=== PATIENT | female | born 1995 | race Caucasian/White ===

== ENCOUNTER → 2019-02-12 09:56 | Outpatient (BNVA) | payer OTHER, SELFPAY | PROVIDERS: Family Provider Family Medicine; PCP Family Medicine; Referring Provider Obstetrics & Gynecology; Visit Provider Obstetrics & Gynecology | DX: Z31.69 Encounter for other general counseling and advice on procreation (principal); Z31.9 Encounter for procreative management, unspecified | CPT/HCPCS: 36415; 83036; 84144; 84443 ==

== ENCOUNTER → 2020-01-04 08:58 | Outpatient (BNVA) | payer OTHER, SELFPAY | PROVIDERS: Family Provider Family Medicine; PCP Family Medicine; Visit Provider Obstetrics & Gynecology | DX: N83.02 Follicular cyst of left ovary (principal); N83.01 Follicular cyst of right ovary | CPT/HCPCS: 76830 ==

== ENCOUNTER → 2020-01-19 15:50 | Outpatient (BNVA) | payer OTHER, SELFPAY | PROVIDERS: Family Provider Family Medicine; PCP Family Medicine; Visit Provider Obstetrics & Gynecology | DX: N97.8 Female infertility of other origin (principal) | CPT/HCPCS: 81025 ==

== ENCOUNTER → 2020-03-02 14:27 | Outpatient (BNVA) | payer OTHER, SELFPAY | PROVIDERS: Family Provider Family Medicine; PCP Family Medicine; Visit Provider Obstetrics & Gynecology | DX: N85.4 Malposition of uterus (principal) | CPT/HCPCS: 76830 ==

== ENCOUNTER → 2020-03-03 10:07 | Outpatient (BNVA) | payer OTHER, SELFPAY | PROVIDERS: Family Provider Family Medicine; PCP Family Medicine; Visit Provider Obstetrics & Gynecology | DX: N85.4 Malposition of uterus (principal); N83.8 Other noninflammatory disorders of ovary, fallopian tube and broad ligament | CPT/HCPCS: 76830 ==

== ENCOUNTER 2020-06-25 17:09 | Emergency (ER) | payer OTHER, SELFPAY ==
[2020-06-25 17:23] VITALS: BP 125/86; PULSE 106; RESP 18; TEMP 36.8; O2SAT 98; BMI 22.6
[2020-06-25 17:27] VITALS: BP 116/77; PULSE 98; RESP 20; O2SAT 100
[2020-06-25 18:07] VITALS: BP 124/79; PULSE 108; RESP 18; O2SAT 99
[2020-06-25 18:22] LABS: Basophils % 0.4 %; Eosinophils % 0.5 %; Hematocrit 46.9 % (37.0-47.0); Hemoglobin 16.1 g/dL (11.5-15.3); Lymphocytes # 0.4 10^3/uL (0.8-4.8); Lymphocytes % 5.2 %; Mean Corpuscular HGB Conc 34.3 g/dL (30.0-36.0); Mean Corpuscular Volume 90.2 fL (81-99); Mean Platelet Volume 9.2 fL (7.4-10.4); Monocytes # 0.4 10^3/uL (0.2-0.9); Monocytes % 5.8 %; Nucleated Red Blood Cells % 0 %; Platelet Count 285 10^3/cmm (130-400); Red Cell Distribution Width 12.2 % (12.1-15.1); White Blood Count 7.6 10^3/uL (4.0-10.0)
--- NOTE | 2020-06-25 18:23 | ED_ITS ---
HPI - Abdominal Pain General: Chief Complaint: Abdominal Pain Stated Complaint: ABD PAIN Time Seen by Provider: 06/25/20 17:28 Source: patient Mode of arrival: ambulatory Limitations: no limitations History of Present Illness: HPI narrative: Patient is a 24-year-old female with a past medical history of endometriosis who presents to the emergency department with abdominal pain that started last night. Pain has been gradually getting worse and early this morning she started having diarrhea all episodes. She has had about 10 diarrheal episodes so far. The pain has been getting worse since she came to the emergency department to be evaluated. She denies any fever, she does have some nausea but no vomiting. Appetite is decreased. She does not have a history of pancreatitis, does not drink alcohol. She does not use NSAIDs or drink caffeinated products. MD elicited complaint: abdominal pain Pertinent past history: other (endometriosis) Onset (ago): day(s) (1) Pain Consistency: constant Location: Diffuse Severity: severe Quality: cramping Radiation: none Migration to: no migration Exacerbating factors: nothing Relieving factors: nothing Associated Symptoms: Reports anorexia, diarrhea and nausea; Denies belching, bloating, change in bowel habits, change in stool character, chills, coffee ground emesis, constipation, GI cramping, dyspepsia, dysuria, excessive flatus, fever(s), heartburn, hematochezia, hematuria, hematemesis, fecal incontinence, loose stools, melena, poor appetite, syncope and vomiting Review of Systems General: Reports: 10 or more systems reviewed and unremarkable except in HPI and below Const: Denies: fever(s) or chills Card: Denies: syncope GI: Reports: nausea and diarrhea; Denies: vomiting, hematemesis, coffee ground emesis, heartburn, constipation, bloating, GI cramping, belching, excessive flatus, fecal incontinence, change in bowel habits, change in stool character, hematochezia or melena : Denies: dysuria or hematuria [facility] ED PFSH: Medical History (Updated 06/25/20 @ 20:44 by [place] S[place] [facility] [place] Anxiety Has been dealing with anxiety for a number of years however was started on medication in January 2018. Was on on BuSpar and diazepam managed by her primary care provider Dr. Adkins -Is currently on fluoxetine and has stopped BuSpar and diazepam as she is trying to get . She currently follows up with a therapist Dr. Phu Guerrero in [place]. No pertinent past medical history Patient denies history of PE/DVT/clotting disorders, asthma, lung, liver heart, thyroid, kidney disease, hypertension or diabetes. PCP: Dr. Adkins Surgical History (Reviewed 06/25/20 @ 18:26 by Rebecca Sellers [place] [facility] [place] S/P appendectomy Open appendectomy via right lower quadrant incision at the age of 12 Family History (Reviewed 06/25/20 @ 18:26 by Rebecca Sellers [place], [facility] [place] Grandfather Hypertension Paternal Brother Hypertension Family/Other Hypertension Paternal Uncle Father Heart disease Grandmother Uterine cancer Paternal, diagnosed at age 65 Denies family history of Cervical cancer Colon cancer DVT (deep venous thrombosis) Breast cancer Pulmonary embolism Social History (Reviewed 06/25/20 @ 18:26 by Rebecca Sellers [place], [facility] [place] Additional social history: - Drug Use: Denies Alcohol Use: Drinks a glass of wine once monthly on average Tobacco Use: Denies current or past use Work/Study Status: 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 [employer] Physical Exam Const: COMMON NORMALS: no acute distress, average body habitus, patient oriented x3, no limitations, healthy appearing, alert and well nourished HENMT: COMMON NORMALS: normocephalic, atraumatic and moist oral mucous membranes HEAD & SCALP: normocephalic and atraumatic Neck/C-Spine: COMMON NORMALS: no meningeal signs and no JVD Resp: COMMON NORMALS: normal respiratory effort, No retractions, No use of accessory muscles, clear to auscultation bilaterally and percussion normal AUSCULTATION: clear to auscultation bilaterally PERCUSSION: percussion normal Cardio: COMMON NORMALS: no JVD, regular rate, regular rhythm, S1 normal heart sound present, S2 normal heart sound present, No gallops present (Cardio), No clicks present (Cardio), No murmurs present (Cardio), No rub (Cardio) and Peripheral pulses 2+ throughout RATE: regular rate RHYTHM: regular rhythm HEART SOUNDS: S1 normal heart sound present and S2 normal heart sound present PERIPHERAL PULSES: Peripheral pulses 2+ throughout GI: COMMON NORMALS: Normal to inspection, nondistended, normoactive bowel sounds present, Soft to palpation, No hepatosplenomegaly present, no masses and no bruits PALPATION: Yes Soft to palpation, Yes Tenderness to palpation present (GI) (mild tenderness RUQ, epigastric region) and Yes No hepatosplenomegaly present Extremity: COMMON NORMALS: normal to inspection, full ROM, capillary refill normal, no calf tenderness and no pedal edema Neuro: COMMON NORMALS: patient oriented x3 SENSORIUM/ORIENTATION: Yes alert MENINGEAL SIGNS: Yes no meningeal signs Course Reevaluation(s): Reevaluation #1: Discussed her lab and imaging findings with her. Lab work unremarkable for acute findings, UA suggestive of UTI although the sample is not a great sample. CT scan of her abdomen and pelvis consistent with enteritis that is nonspecific. We will give her a short course of antibiotics for the possible UTI and she will be managed conservatively for the enteritis. She voiced understanding and is in agreement with the plan Time: 20:42 Vital Signs: Vital signs: Vital Signs Temperature 97 F L 06/25/20 21:14 Pulse Rate 76 06/25/20 21:14 Respiratory Rate 17 06/25/20 21:14 Blood Pressure 120/62 06/25/20 21:14 Pulse Oximetry 99 06/25/20 21:14 MDM - Abdominal Pain MDM Narrative: Medical decision making narrative: 24-year-old female patient who presents with abdominal pain and diarrhea. Evaluation in the emergency department shows possible UTI as well as enteritis. She will be managed for both, conservatively for enteritis and prescription for antibiotic for the UTI. Lab Data: Labs: Lab Results 06/25/20 06/25/20 06/25/20 Range/Units 18:16 18:16 18:16 WBC 7.6 (4.0-10.0) 10^3/ uL RBC 5.20 (4.1-5.3) 10^6/u L Hgb 16.1 H (11.5-15.3) g/dL Hct 46.9 (37.0-47.0) % MCV 90.2 (81-99) fL MCH 31.0 (28.0-34.0) pg MCHC 34.3 (30.0-36.0) g/dL RDW 12.2 (12.1-15.1) % Plt Count 285 (130-400) 10^3/c mm MPV 9.2 (7.4-10.4) fL Neut % (Auto) 88.0 % Lymph % (Auto) 5.2 % Gallia % (Auto) 5.8 % Eos % (Auto) 0.5 % Baso % (Auto) 0.4 % Neut # (Auto) 6.70 (1.8-7.7) 10^3/u L Lymph # (Auto) 0.4 L (0.8-4.8) 10^3/u L Gallia # (Auto) 0.4 (0.2-0.9) 10^3/u L Eos # (Auto) 0.0 (0.0-0.8) 10^3/u L Baso # (Auto) 0.0 (0.0-0.1) 10^3/u L Nucleated RBC % (a uto) 0 % Nucleated RBCs # 0.0 /100WBC Sodium Cancelled Potassium Cancelled Chloride Cancelled Carbon Dioxide Cancelled Anion Gap Cancelled BUN Cancelled Creatinine Cancelled GFR Calculation Cancelled Glucose Cancelled Calculated Osmolal ity Cancelled Lactate Cancelled Calcium Cancelled Total Bilirubin Cancelled AST Cancelled ALT Cancelled Alkaline Phosphata se Cancelled C-Reactive Protein Cancelled Total Protein Cancelled Albumin Cancelled Globulin Cancelled Lipase Cancelled HCG, Qual (Negative) Urine Color (Yellow) Urine Appearance (CLEAR) Urine pH (5-7) Ur Specific Gravit y (1.005-1.030) Urine Protein (Negative) Urine Glucose (UA) (Normal) Urine Ketones (Negative) Urine Blood (Negative) Urine Nitrate (Negative) Urine Bilirubin (Negative) Urine Urobilinogen (Negative) mg/dL Ur Leukocyte Mary ase (Negative) Urine RBC (0-2) /hpf Urine WBC (0-5) /hpf Ur Squamous Epith Cells (0-5) /hpf Amorphous Sediment /hpf Urine Bacteria (NONE) /hpf Urine Mucus /hpf 06/25/20 06/25/20 06/25/20 Range/Units 18:16 18:16 18:43 WBC (4.0-10.0) 10^3/ uL RBC (4.1-5.3) 10^6/u L Hgb (11.5-15.3) g/dL Hct (37.0-47.0) % MCV (81-99) fL MCH (28.0-34.0) pg MCHC (30.0-36.0) g/dL RDW (12.1-15.1) % Plt Count (130-400) 10^3/c mm MPV (7.4-10.4) fL Neut % (Auto) % Lymph % (Auto) % Gallia % (Auto) % Eos % (Auto) % Baso % (Auto) % Neut # (Auto) (1.8-7.7) 10^3/u L Lymph # (Auto) (0.8-4.8) 10^3/u L Gallia # (Auto) (0.2-0.9) 10^3/u L Eos # (Auto) (0.0-0.8) 10^3/u L Baso # (Auto) (0.0-0.1) 10^3/u L Nucleated RBC % (a uto) % Nucleated RBCs # /100WBC Sodium 137 Potassium 3.9 Chloride 102 Carbon Dioxide 24 Anion Gap 14.9 BUN 17 Creatinine 0.9 GFR Calculation 76.3 L Glucose 99 Calculated Osmolal ity 286 Lactate Calcium 8.9 Total Bilirubin 0.9 AST 17 ALT 18 Alkaline Phosphata se 52 C-Reactive Protein 7.8 H Total Protein 7.7 Albumin 4.5 Globulin 3.2 Lipase 29 HCG, Qual Negative (Negative) Urine Color Yellow (Yellow) Urine Appearance Sl hazy (CLEAR) Urine pH 5 (5-7) Ur Specific Gravit y 1.025 (1.005-1.030) Urine Protein Neg (Negative) Urine Glucose (UA) Norm (Normal) Urine Ketones Negative (Negative) Urine Blood 3+ H (Negative) Urine Nitrate Negative (Negative) Urine Bilirubin 1+ H (Negative) Urine Urobilinogen Norm (Negative) mg/dL Ur Leukocyte Mary ase 1+ H (Negative) Urine RBC 10-15 H (0-2) /hpf Urine WBC 5-10 H (0-5) /hpf Ur Squamous Epith Cells 25-40 H (0-5) /hpf Amorphous Sediment 1+ /hpf Urine Bacteria 4+ H (NONE) /hpf Urine Mucus 3+ /hpf 05/15/21 Range/Units 18:43 WBC (4.0-10.0) 10^3/ uL RBC (4.1-5.3) 10^6/u L Hgb (11.5-15.3) g/dL Hct (37.0-47.0) % MCV (81-99) fL MCH (28.0-34.0) pg MCHC (30.0-36.0) g/dL RDW (12.1-15.1) % Plt Count (130-400) 10^3/c mm MPV (7.4-10.4) fL Neut % (Auto) % Lymph % (Auto) % Gallia % (Auto) % Eos % (Auto) % Baso % (Auto) % Neut # (Auto) (1.8-7.7) 10^3/u L Lymph # (Auto) (0.8-4.8) 10^3/u L Gallia # (Auto) (0.2-0.9) 10^3/u L Eos # (Auto) (0.0-0.8) 10^3/u L Baso # (Auto) (0.0-0.1) 10^3/u L Nucleated RBC % (a uto) % Nucleated RBCs # /100WBC Sodium Potassium Chloride Carbon Dioxide Anion Gap BUN Creatinine GFR Calculation Glucose Calculated Osmolal ity Lactate 1.0 Calcium Total Bilirubin AST ALT Alkaline Phosphata se C-Reactive Protein Total Protein Albumin Globulin Lipase HCG, Qual (Negative) Urine Color (Yellow) Urine Appearance (CLEAR) Urine pH (5-7) Ur Specific Gravit y (1.005-1.030) Urine Protein (Negative) Urine Glucose (UA) (Normal) Urine Ketones (Negative) Urine Blood (Negative) Urine Nitrate (Negative) Urine Bilirubin (Negative) Urine Urobilinogen (Negative) mg/dL Ur Leukocyte Mary ase (Negative) Urine RBC (0-2) /hpf Urine WBC (0-5) /hpf Ur Squamous Epith Cells (0-5) /hpf Amorphous Sediment /hpf Urine Bacteria (NONE) /hpf Urine Mucus /hpf Imaging Data ^: CT Abd/Pel: Attestation: I personally reviewed and interpreted this imaging study as follows: Radiologist's impression: [address] [id number] Scan ReportSigned Patient: Cathi Houser AUnit #: [id number]: [id number]#:[id number]/Sex: 24 / FADM Date: 06/25/20Loc: ERRoom/Bed:Attending Dr: Ordering Provider/Ordering MD: Rebecca Sellers MD, DENIS Date of Service: 06/25/20 Procedure(s): CT abdomen pelvis w con* [id number] Accession Number(s): [id number] Report Number: [id number] PROCEDURE INFORMATION: Exam: CT Abdomen And Pelvis With Contrast Exam date and time: 06/25/2020 7:13 PM Age: 24 years old Clinical indication: Abdominal pain; Generalized; Prior surgery; Surgery date: 1-6 months; Surgery type: Lap endo; Patient HX: C/O abd pain and diarrhea; Additional info: Abdominal pain, diarrhea TECHNIQUE: Imaging protocol: Computed tomography of the abdomen and pelvis with contrast. Radiation optimization: All CT scans at this facility use at least one of these dose optimization techniques: automated exposure control; mA and/or kV adjustment per patient size (includes targeted exams where dose is matched to clinical indication); or iterative reconstruction. Contrast material: OMNI 300; Contrast volume: 75 ml; Contrast route: INTRAVENOUS (IV); COMPARISON: US transvaginal [id number] 03/03/2020 10:10 AM RADIATION DOSE METRICS: Total DLP (mGy-cm): 797.24 FINDINGS: Liver: Normal. No mass. Gallbladder and bile ducts: Normal. No calcified stones. No ductal dilation. Pancreas: Normal. No ductal dilation. Spleen: Normal. No splenomegaly. Adrenal glands: Normal. No mass. Kidneys and ureters: Normal. No hydronephrosis. Stomach and bowel: There is scattered air-fluid levels in the non abnormally distended distal small bowel and colon. No inflammatory changes or obstruction identified. Appendix: The appendix is not clearly seen, however there is no evidence of secondary inflammatory changes to suggest acute appendicitis. Intraperitoneal space: Unremarkable. No free air. No significant fluid collection. Vasculature: Unremarkable. No abdominal aortic aneurysm. Lymph nodes: Unremarkable. No enlarged lymph nodes. Urinary bladder: Unremarkable as visualized. Reproductive: Unremarkable as visualized. Bones/joints: Unremarkable. No acute fracture. Soft tissues: Unremarkable. CT/CT abdomen pelvis w con* [id number] IMPRESSION: Nonspecific imaging findings, which can be seen in the setting of mild enteritis or colitis. Radiation Dose CTDIVOL = (mGy): DLP = 797.24 (mGy-cm) Dictated By:Brennan Pierre By:Brennan Pierre Date/Time:06/25/20D/ 30 Discharge Plan Discharge Patient Disposition: Home Clinical Impression: Enteritis UTI (urinary tract infection) Qualifiers: Urinary tract infection type: acute cystitis Hematuria presence: without hematuria Qualified Code(s): N30.00 - Acute cystitis without hematuria Condition: Stable Prescriptions: New nitrofurantoin macrocrystal 100 mg capsule 100 mg PO BID 7 Days Qty: 14 RF: 0 Continued fluoxetine [Prozac] 10 mg capsule 10 mg PO DAILY RF: 0 prenat.vits,nazanin,gyo-mwif-nagsc Tablet 1 tab PO DAILY RF: 0 Discharge Orders: Discharge ED (Routine); Ordered 06/25/20 Ordered By: Rebecca Sellers Referrals: Yasmany Adkins DO [Primary Care Provider] - 1-3 days Discharge Diet: Usual diet Discharge Activity: Increase activity as tolerated Patient Instructions: Urinary Tract Infection in Women (ED), Gastroenteritis (ED) Activity Restrictions/Additional Instructions: Return for any new or worsening symptoms. Follow-up with your primary care provider within 3 days. Take your medications as prescribed. Most causes of diarrhea are self-limiting so expect your symptoms to resolve within the next few days. Drink plenty of fluids to keep well-hydrated. Coding Level of Care Code ED Assistant Spa Manager for Chg Fwd Exam Detailed
[2020-06-25 18:25] LABS: Add Urine Microscopic? YES; Bilirubin Urine 1+ (Negative); Blood Urine 3+ (Negative); Glucose Urine UA Norm (Normal); Ketones Urine Negative (Negative); Leukocyte Esterase Urine 1+ (Negative); Nitrate Urine Negative (Negative); Protein Urine Neg (Negative); Specific Gravity, Urine 1.025 (1.005-1.030); Urine Appearance SL Hazy (CLEAR); Urine Color Yellow (Yellow); Urobilinogen Urine Norm (Negative); pH Urine 5 (5-7)
[2020-06-25 18:26] LABS: HCG Qualitative Urine. Negative (Negative)
[2020-06-25 18:29] LABS: Amorphous Sediment Urine 1+ /hpf; Bacteria Urine 4+ /hpf; Mucus Urine 3+ /hpf; Squamous Epithelial Cell Urine 25-40 /hpf (0-5)
[2020-06-25 18:30] LABS: Add Urine Culture? No
--- NOTE | 2020-06-25 19:07 | CTR_ITS ---
PROCEDURE INFORMATION: Exam: CT Abdomen And Pelvis With Contrast Exam date and time: 06/25/2020 7:13 PM Age: 24 years old Clinical indication: Abdominal pain; Generalized; Prior surgery; Surgery date: 1-6 months; Surgery type: Lap endo; Patient HX: C/O abd pain and diarrhea; Additional info: Abdominal pain, diarrhea TECHNIQUE: Imaging protocol: Computed tomography of the abdomen and pelvis with contrast. Radiation optimization: All CT scans at this facility use at least one of these dose optimization techniques: automated exposure control; mA and/or kV adjustment per patient size (includes targeted exams where dose is matched to clinical indication); or iterative reconstruction. Contrast material: OMNI 300; Contrast volume: 75 ml; Contrast route: INTRAVENOUS (IV); COMPARISON: US transvaginal [id number] 03/03/2020 10:10 AM RADIATION DOSE METRICS: Total DLP (mGy-cm): 797.24 FINDINGS: Liver: Normal. No mass. Gallbladder and bile ducts: Normal. No calcified stones. No ductal dilation. Pancreas: Normal. No ductal dilation. Spleen: Normal. No splenomegaly. Adrenal glands: Normal. No mass. Kidneys and ureters: Normal. No hydronephrosis. Stomach and bowel: There is scattered air-fluid levels in the non abnormally distended distal small bowel and colon. No inflammatory changes or obstruction identified. Appendix: The appendix is not clearly seen, however there is no evidence of secondary inflammatory changes to suggest acute appendicitis. Intraperitoneal space: Unremarkable. No free air. No significant fluid collection. Vasculature: Unremarkable. No abdominal aortic aneurysm. Lymph nodes: Unremarkable. No enlarged lymph nodes. Urinary bladder: Unremarkable as visualized. Reproductive: Unremarkable as visualized. Bones/joints: Unremarkable. No acute fracture. Soft tissues: Unremarkable. CT/CT abdomen pelvis w con* [id number] IMPRESSION: Nonspecific imaging findings, which can be seen in the setting of mild enteritis or colitis. Radiation Dose CTDIVOL = (mGy): DLP = 797.24 (mGy-cm)
[2020-06-25 19:33] LABS: Alanine Aminotransferase 18 U/L (0-33); Albumin Level 4.5 g/dL (3.5-5.2); Alkaline Phosphatase 52 IU/L (35-105); Anion Gap 14.9 (5-19); Aspartate Amino Transferase 17 U/L (0-32); Blood Urea Nitrogen 17 mg/dL (6-20); C Reactive Protein 7.8 mg/L (0.0-4.9); Calcium 8.9 mg/dL (8.5-10.5); Carbon Dioxide 24 mmol/L (22-29); Chloride 102 mmol/L (98-107); Globulin 3.2 g/dL (1.3-4.6); Glomerular Filtration Rate 76.3 mL/min (90-130); Glucose 99 mg/dL (65-115); Lipase 29 U/L (13-60); Osmolality Calculated 286 mOsm/kg (285-295); Potassium 3.9 mmol/L (3.5-5.1); Sodium 137 mmol/L (136-145); Total Bilirubin 0.9 mg/dL (0.15-1.2); Total Protein 7.7 g/dL (6.6-8.7)
[2020-06-25] MEDS: iohexol 300 mg/mL 100 mL Btl IV (19:57)
[2020-06-25 20:38] LABS: Reflex Lactate Order REFLEX LACTIC ORDERD
[2020-06-25 21:14] VITALS: BP 120/62; PULSE 76; RESP 17; TEMP 36.1; O2SAT 99
[2020-06-25] MEDS: amoxicillin-clav 500-125 mg Tablet 1 TAB PO (21:14)
== END 2020-06-25 21:15 | disposition home or self-care (01) ==
PROVIDERS: Emergency Provider Family Medicine; PCP Family Medicine
DX: K52.9 Noninfective gastroenteritis and colitis, unspecified (principal); N30.00 Acute cystitis without hematuria
CPT/HCPCS: 36415; 74177; 80053; 81001; 81025; 83605; 83690; 85025; 86140; 99283; Q9967

== ENCOUNTER → 2020-08-04 08:12 | Outpatient (BNVA) | payer OTHER, SELFPAY | PROVIDERS: PCP Family Medicine; Visit Provider Nurse Practitioner Women's Health | DX: N92.6 Irregular menstruation, unspecified (principal); F41.9 Anxiety disorder, unspecified | CPT/HCPCS: 81025 ==

== ENCOUNTER → 2020-08-11 13:10 | Outpatient (BNVA) | payer OTHER, SELFPAY | PROVIDERS: PCP Family Medicine; Visit Provider Nurse Practitioner Women's Health | DX: Z34.80 Encounter for supervision of other normal pregnancy, unspecified trimester (principal); R30.0 Dysuria | CPT/HCPCS: 81000; 87086 ==

== ENCOUNTER → 2020-09-23 09:15 | Outpatient (BNVA) | payer OTHER, SELFPAY | PROVIDERS: PCP Family Medicine; Visit Provider Obstetrics & Gynecology | DX: Z34.01 Encounter for supervision of normal first pregnancy, first trimester (principal) | CPT/HCPCS: 80307; 84315; 85025; 86592; 86762; 86803; 86850; 86900; 87086; 87340; 87491; 87591; 87661; 87806 ==

== ENCOUNTER → 2020-09-26 16:07 | Outpatient (BNVA) | payer OTHER, SELFPAY | PROVIDERS: PCP Family Medicine; Visit Provider Obstetrics & Gynecology | DX: R39.89 Other symptoms and signs involving the genitourinary system (principal) | CPT/HCPCS: 81000 ==

== ENCOUNTER → 2020-11-09 10:31 | Outpatient (BNVA) | payer OTHER, SELFPAY | PROVIDERS: PCP Family Medicine; Visit Provider Obstetrics & Gynecology | DX: O20.8 Other hemorrhage in early pregnancy (principal); Z3A.19 19 weeks gestation of pregnancy | CPT/HCPCS: 76805 ==

== ENCOUNTER → 2020-12-06 15:07 | Outpatient (BNVA) | payer OTHER, SELFPAY | PROVIDERS: PCP Family Medicine; Visit Provider Obstetrics & Gynecology | DX: Z34.01 Encounter for supervision of normal first pregnancy, first trimester (principal) | CPT/HCPCS: 82950; 84315 ==

== ENCOUNTER → 2021-01-03 14:54 | Outpatient (BNVA) | payer OTHER, SELFPAY | PROVIDERS: PCP Family Medicine; Visit Provider Obstetrics & Gynecology | DX: Z34.01 Encounter for supervision of normal first pregnancy, first trimester (principal) | CPT/HCPCS: 84315; 85027 ==

== ENCOUNTER → 2021-03-07 14:37 | Outpatient (BNVA) | payer OTHER, SELFPAY | PROVIDERS: PCP Family Medicine; Visit Provider Obstetrics & Gynecology | DX: Z34.80 Encounter for supervision of other normal pregnancy, unspecified trimester (principal) | CPT/HCPCS: 84315; 87081 ==

== ENCOUNTER 2021-03-23 17:12 | Inpatient (IN) | payer OTHER, SELFPAY ==
[2021-03-23] VITALS (17 sets, daily range): BP systolic 111–132; BP diastolic 65–87; PULSE 64–102; RESP 15–17; TEMP 36.8; BMI 25.8
[2021-03-23] MEDS: miSOPROStol 100 mcg tablet 25 MCG VAGINAL (18:24)
[2021-03-23 19:37] LABS: Basophils % 0.4 %; Eosinophils # 0.1 10^3/uL (0.0-0.8); Eosinophils % 0.7 %; Hematocrit 37.4 % (37.0-47.0); Hemoglobin 13.1 g/dL (11.5-15.3); Lymphocytes # 1.6 10^3/uL (0.8-4.8); Lymphocytes % 16.5 %; Mean Corpuscular Hemoglobin 31.7 pg (28.0-34.0); Mean Corpuscular Volume 90.6 fl (81-99); Mean Platelet Volume 10.2 fL (7.4-10.4); Monocytes # 0.6 10^3/uL (0.2-0.9); Monocytes % 6.5 %; Neutrophils # 7.42 10^3/uL (1.8-7.7); Neutrophils % 75.4 %; Nucleated Red Blood Cells % 0 %; Platelet Count 267 10^3/cmm (130-400); Red Blood Count 4.13 10^6/uL (4.1-5.3); Red Cell Distribution Width 12.7 % (12.1-15.1); White Blood Count 9.9 10^3/uL (4.0-10.0)
[2021-03-23] MEDS: dextrose 5%-lactated ringers 1,000 ML 125 ML IV (22:10)
[2021-03-23] MEDS: fentaNYL 50 mcg/mL INJ 2mL IVP (23:29)
[2021-03-24] VITALS (32 sets, daily range): BP systolic 102–184; BP diastolic 55–133; PULSE 59–136; RESP 15–18; TEMP 36.5–36.9; O2SAT 89–100
[2021-03-24] MEDS: lactated ringers 1,000 ML 999 ML IV
[2021-03-24] MEDS: fentaNYL 50 mcg/mL INJ 2mL IVP (00:37)
--- NOTE | 2021-03-24 00:49 | P.ANESASSM_ITS ---
Pre-Anesthetic Assessment Height/Weight: Height 1.55 m Weight 62 kg Temp Pulse Resp BP 98.2 F 87 15 114/65 03/23/21 18:05 03/23/21 23:50 03/24/21 00:37 03/23/21 23:50 Preop Diagnosis: labor pain epidural Familial anesthetic complications: none Was Beta Laury taken within 24 hours: N/A Was Clonidine taken within 24 hours: N/A Social No alcohol and No tobacco Exam alert, oriented x 3, clear to auscultation bilaterally and regular rate & rhythm Airway Submandibular: within normal limits Cervical ROM: within normal limits Mallampati: Class II Dentition: full History/ROS No significant complaints Pulmonary None reported CV/HEM None reported None reported Hepatic None reported GI None reported Metabolic None reported Musc/skel None reported Neuropsych Anxiety Anesthetic Plan ASA status: 2 Anesthesia: Regional (specify below) Risk of > 500 ml blood loss (7ml/kg in children): No Medications/Allergies Home Medications Medication Instructions Recorded Confirmed Last Taken Type fluoxetine 10 mg capsule (Prozac) 10 mg PO DAILY cap 11/11/19 03/23/21 06/24/20 History prenat.vits,nazanin,njc-xrix-ffqas 1 tab PO DAILY 12/25/19 03/23/21 06/24/20 History Allergies Allergy/AdvReac Type Severity Reaction Status Date / Time melon Allergy Mild itching Verified 03/23/21 10:21 Current Medications Generic Name Dose Route Start Last Admin Trade Name Freq PRN Reason Stop Dose Admin Fentanyl 25 - 100 mcg 03/23/21 17:49 03/24/21 00:37 Fentanyl 50 Mcg/Ml Inj 2ml IVP 50 mcg Q1H PRN Administration SEVERE PAIN Dextrose/Lactated Ringer's 1,000 mls @ 125 mls/hr 03/23/21 17:49 03/23/21 22:10 Dextrose 5%-Lactated Ringers IV 125 mls/hr .Q8H PRN Administration per label comments Misoprostol 25 mcg 03/23/21 18:00 03/23/21 18:24 Misoprostol 100 Mcg Tablet VAGINAL 03/24/21 02:01 25 mcg Q4H HERLINDA Administration PFSH Anesthesia Medical History Anxiety Has been dealing with anxiety for a number of years however was started on medication in January 2018. Was on on BuSpar and diazepam managed by her primary care provider Dr. Adkins -Is currently on fluoxetine and has stopped BuSpar and diazepam as she is trying to get . She currently follows up with a therapist Dr. Phu Guerrero in [place]. No pertinent past medical history Patient denies history of PE/DVT/clotting disorders, asthma, lung, liver heart, thyroid, kidney disease, hypertension or diabetes. PCP: Dr. Adkins Surgical History H/O laparoscopy (~05/2020) performed in [place]-- stage 3 endometriosis S/P appendectomy Open appendectomy via right lower quadrant incision at the age of 12 Family History Grandfather Hypertension Paternal Brother Hypertension Family/Other Hypertension Paternal Uncle Father Heart disease Grandmother Uterine cancer Paternal, diagnosed at age 65 Denies family history of Cervical cancer Colon cancer DVT (deep venous thrombosis) Breast cancer Pulmonary embolism Female Reproductive History : 1 Data Anesthesia : 03/23/21 17:55 Short CBC 03/23/21 Range/Units 17:55 WBC 9.9 (4.0-10.0) 10^3/uL Hgb 13.1 (11.5-15.3) g/dL Hct 37.4 (37.0-47.0) % MCV 90.6 (81-99) fl Plt Count 267 (130-400) 10^3/cmm Neut % (Auto) 75.4 % Neut # (Auto) 7.42 (1.8-7.7) 10^3/uL Cardiac Studies: No Data to Display
--- NOTE | 2021-03-24 01:32 | P.ANES_ITS ---
Anesthesia Procedures Procedure/Date: 03/24/21 epidural Procedure Narrative: epidural complete, bolus given, epidural pump initiated with PYTHON ENGINEER education given, vitals taken during procedure using OBIX system and satisfactory throughout, patient admits to decrease pain, report of procedure to OB RN Epidural: Time Out Performed: Yes Consents Signed: Procedure Consent Consent: requested by attending/covering physician, from patient, risks and benefits reviewed and patient agrees to proceed Lumbar Level: L3-L4 Epidural position: sitting Epidural procedure: sterile prep of area, 1% lidocaine to numb the area (3 mL), 18 g needle, negative for paresthesia passed, neg for paresthesia, test dose given, 1.5% xylocaine 1:200k epi (5 mL), 0.2% Ropivacaine bolus ml (5 mL), placed PCEA, no systemic response, sterile dressing applied, L.U.D. no apparent complications and 0.2% Ropiavacaine @ mls/hr (13 mL/hr)
--- NOTE | 2021-03-24 03:04 | PM.DELIVERY ---
Delivery Note: Date of delivery: March 24, 2021 Pre-delivery diagnoses: Term . Intrauterine growth restriction Post-delivery diagnoses: Term delivered. Small for gestational age Delivering Physician: David Cabrera MD Findings: 300 mL Pre-Delivery Course: The patient is a 25yo at 39+3weeks EGA who has been [place] [facility] [place] [facility]. She was admitted for induction. She received 1 misoprostol for cervical ripening and started with regular contractions and progressed rapidly to full dilation. LMP of 06/21/2020, [place] 03/28/2021 based on LMP CC: Induction of labor due to IUGR. HPI: Received appropriate care. Daily vitamins since two months prior to conception. labs have all been normal, including negative for HIV. She was found to negative for Group B Strep from screening at 36 weeks. She has gained approximately 13.39406 lbs throughout the . She denies a history of HTN during . Glucose tolerance screening for gestational diabetes was negative. Delivery: The patient was noted to be complete and pushing, she was placed in the dorsal lithotomy position, prepped and draped in the usual sterile fashion for a vaginal delivery. Pt. Noted to have an adequate epidural anesthesia. At 0230 the patient delivered a viable term female infant weighing 3095 g with scores of 8 and 9 at one and five minutes, respectively. The vertex was delivered spontaneously over intact perineum. The patient was asked to push and the head delivered spontaneously in the ADELA position, over an intact perineum. A nuchal cord was checked and none noted. The anterior shoulder delivered easily and the posterior shoulder followed. The remainder of the was easily delivered and the oropharynx and nasopharynx was bulb suctioned. The was noted to have spontaneous cry and spontaneous movement of all four extremities. The cord was clamped x 2 and cut and noted to have 2 arteries and one vein. The infant was passed to the mother's abdomen where nursing personnel were in attendance. The placenta delivered intact spontaneously and the uterus was explored. 20 units of Pitocin was placed in the IV bag to firm the uterus. Examination of the cervix and vaginal vault did not reveal any lacerations. A vaginal pack was then placed. Examination of the perineum showed a second-degree laceration. The laceration was repaired with 3-0 Vicryl in the normal fashion in a running non locking fashion to reapproximate the laceration in layers. The vaginal pack was then removed. The patient tolerated this procedure well, and recovered in L&D with her infant in the LDR room. All sponge and needle counts were correct. Post-Delivery Status: Hemodynamically stable History History History 1 Term Miscarriages/Ectopic Living Children A&P Assessment and plan (1) Term delivered: Status: Acute (2) Intrauterine growth restriction affecting antepartum care of mother in third trimester: Status: Acute Coding Level of Care Code Acute [employer] for g Fwd Diagnoses Intrauterine growth restriction affecting antepartum care of mother in third trimester O36.5930 Term delivered O80
[2021-03-24] MEDS: benzocaine-menthol 78 gm Canister 1 SPRAY TOPICAL (05:40)
[2021-03-24] MEDS: ibuprofen 800 mg tablet PO ×3 (08:39→21:25)
[2021-03-24] MEDS: HYDROcodone-acetaminophen 5-325 mg Tablet PO (08:40)
[2021-03-24] MEDS: docusate sodium 100 mg Capsule PO ×2 (08:40→21:25)
[2021-03-24] MEDS: prenatal vitamin Capsule 1 CAP PO (08:40)
--- NOTE | 2021-03-24 12:27 | ANE.PACU2 ---
Inpatient post-anesthesia follow up: Airway intact: Yes Vital signs: Temperature 98.4 F Pulse Rate 68 Respiratory Rate 15 Blood Pressure 113/64 Pulse Oximetry 99 Oxygen Delivery Me thod Room Air Oxygen Flow Rate Fraction of Inspir ed Oxygen Hydration adequate: Yes Nausea and vomiting: No Pain level: 2 Mental status: Baseline
[2021-03-24 19:53] LABS: Hematocrit 33.3 % (37.0-47.0); Hemoglobin 11.4 g/dL (11.5-15.3); Mean Corpuscular HGB Conc 34.2 g/dL (30.0-36.0); Mean Corpuscular Hemoglobin 31.6 pg (28.0-34.0); Mean Corpuscular Volume 92.2 fl (81-99); Mean Platelet Volume 9.6 fL (7.4-10.4); Platelet Count 217 10^3/cmm (130-400); Red Blood Count 3.61 10^6/uL (4.1-5.3); White Blood Count 13.2 10^3/uL (4.0-10.0)
[2021-03-25 04:00] VITALS: BP 107/66; PULSE 74; RESP 18; TEMP 36.4; O2SAT 100
[2021-03-25] MEDS: ibuprofen 800 mg tablet PO (09:23)
[2021-03-25] MEDS: docusate sodium 100 mg Capsule PO (09:24)
[2021-03-25] MEDS: prenatal vitamin Capsule 1 CAP PO (09:24)
[2021-03-25 11:00] VITALS: BP 108/64; PULSE 72; RESP 16; TEMP 36.4; O2SAT 100
--- NOTE | 2021-03-25 11:26 | PM.OBGYDC ---
Discharge Providers MANIFEST/ORDER ORGANIZER PRINT ORDERS Date of Admission: 03/23/21 17:12 Date of Discharge: 03/25/21 Attending Provider at Admission: David Cabrera MD Attending Provider at Discharge: David Cabrera MD Primary MANIFEST/ORDER ORGANIZER PRINT ORDERS: David Cabrera MD Primary Care Provider: Yasmany Adkins DO Diagnoses at Discharge Discharge Diagnosis (1) Intrauterine growth restriction affecting antepartum care of mother in third trimester: Status: Acute (2) Term delivered: Status: Acute Reason for Visit Reason for Visit: Induction Brief History: Mrs. Houser 25-year-old female at 39+2 admitted for induction. complicated by intrauterine growth restriction. Hospital Course Hospital Course The patient is a 25yo at 39+3weeks EGA who has been receiving care from [facility]. LMP of 06/21/2020, [place] 03/28/2021 based on LMP CC: Induction of labor due to IUGR. HPI: Received appropriate care. Daily vitamins since two months prior to conception. labs have all been normal, including negative for HIV. She was found to negative for Group B Strep from screening at 36 weeks. She has gained approximately 13.19384 lbs throughout the . She denies a history of HTN during . Glucose tolerance screening for gestational diabetes was negative. She was admitted for induction due to IUGR. She received 1 misoprostol for cervical ripening and started with regular contractions and progressed rapidly to full dilation to have a spontaneous vaginal delivery without complications. She delivered a small for gestational age female, Apgars 8/9, with a birthweight of four 3095 g. Shortly after delivery the had to be started on CPAP, and shortly after on supplemental oxygen. Mom observation had been uneventful. She is afebrile and hemodynamically stable. Tolerating diet well. Ambulating without difficulty. Breast-feeding without difficulty. Refers she plans to use condoms for contraception when she becomes sexually active. Information Peripartum Data: Delivery Method: Vaginal Physical Exam Narrative: GA; alert and oriented x 3 HEENT: normal Breasts: engorged Nipples - skin intact Lungs; clear to auscultation Heart: regular rhythm, no murmurs. Abd: Appropriately tender. BS+. Uterine fundus below umbilicus. No Fundal Tenderness. Perineum: normal lochia. Extremities: no edema, no cyanosis, no tenderness. Urinary Catheter Management: Matthew Latex: Cath Placed During This Visit: yes, but has since been removed by the nurse Reason for Continuing Indwelling Catheter: Decision to DC Catheter Urinary Catheter Date of Insertion: 03/24/21 Urinary Catheter Time of Insertion: 01:49 Date Urinary Catheter Removed: 03/24/21 Time Urinary Catheter Discontinued: 02:15 History History History 1 Term Miscarriages/Ectopic Living Children Discharge Data Studies Completed and Pending Laboratory Results WBC 13.2 10^3/uL (4.0-10.0) H 03/24/21 19:20 RBC 3.61 10^6/uL (4.1-5.3) L 03/24/21 19:20 Hgb 11.4 g/dL (11.5-15.3) L 03/24/21 19:20 Hct 33.3 % (37.0-47.0) L 03/24/21 19:20 MCV 92.2 fl (81-99) 03/24/21 19:20 MCH 31.6 pg (28.0-34.0) 03/24/21 19:20 MCHC 34.2 g/dL (30.0-36.0) 03/24/21 19:20 RDW 13.0 % (12.1-15.1) 03/24/21 19:20 Plt Count 217 10^3/cmm (130-400) 03/24/21 19:20 MPV 9.6 fL (7.4-10.4) 03/24/21 19:20 Neut % (Auto) 75.4 % 03/23/21 17:55 Lymph % (Auto) 16.5 % 03/23/21 17:55 [place] % (Auto) 6.5 % 03/23/21 17:55 Eos % (Auto) 0.7 % 03/23/21 17:55 Baso % (Auto) 0.4 % 03/23/21 17:55 Neut # (Auto) 7.42 10^3/uL (1.8-7.7) 03/23/21 17:55 Lymph # (Auto) 1.6 10^3/uL (0.8-4.8) 03/23/21 17:55 [place] # (Auto) 0.6 10^3/uL (0.2-0.9) 03/23/21 17:55 Eos # (Auto) 0.1 10^3/uL (0.0-0.8) 03/23/21 17:55 Baso # (Auto) 0.0 10^3/uL (0.0-0.1) 03/23/21 17:55 Nucleated RBC % (auto) 0 % 03/23/21 17:55 Nucleated RBCs # 0.0 /100WBC 03/23/21 17:55 Vitals Last Vital Signs Temp 97.5 F L 03/25/21 04:00 Pulse 74 03/25/21 04:00 Resp 18 03/25/21 04:00 BP 107/66 03/25/21 04:00 Pulse Ox 100 03/25/21 04:00 Discharge Plan Discharge Patient Disposition: Home Condition: Stable Prescriptions: New ibuprofen 800 mg tablet 800 mg PO TID PRN (Reason: pain) Qty: 60 0RF acetaminophen 325 mg capsule 325 mg PO Q4H PRN (Reason: fever or pain) Qty: 60 0RF Continued fluoxetine [Prozac] 10 mg capsule 10 mg PO DAILY 0RF prenat.vits,nazanin,tpi-subt-pecxp Tablet 1 tab PO DAILY 0RF Discharge Orders: Discharge Order (Routine); Ordered 03/25/21 Ordered By: David Cabrera Referrals: David Cabrera MD [Physician] - 6 Weeks Discharge Diet: Regular Discharge Activity: Limit activity as instructed Patient Instructions: Depression (DC), Bleeding (DC), Preeclampsia and Eclampsia After Delivery (GEN), COVID-19 and (GEN), OB Discharge Report, OB Food/Drug Interaction Guide, OB Care at Home, Opioid Safety, OB Home Care, OB Vaginal Deliveries - [facility], Vaginal Delivery (DC) Activity Restrictions/Additional Instructions: 1. Please call [facility] clinic on next working day to make your appointment in six weeks. 2. Please stay home until you come back to the clinic on first post-operative check up. 3. Please follow instructions on your medications CAREFULLY. 4. If you have abdominal incision, do not cover it unless dressing is necessary because of drainage. OK to shower, but avoid bath. Leave steri-strips until they fall off. If they are still on one week after surgery, you may remove them. 5. If you had vaginal surgery or vaginal repair, Dr. Cabrera may instruct you to take SITZ bath. 6. Yellow, blood tinged odorous vaginal discharge is usually normal after hysterectomy or vaginal surgeries. 7. No sexual intercourse, tampons, or douches until you are completely released from the post-operative care. 8. Avoid constipation by eating right and maybe using some Metamucil or Milk of Magnesia. 9. All prescription refills are given during the working hours. Please do no wait till it runs out. Call the clinic at [phone] before your medication runs out. The clinic will get in touch with your doctor to prescribe medications if necessary. 10. Please remain within 40 mile radius from our hospital because emergencies do happen now and then during the post-operative period. 11. If you have stairs at home, take one step at a time slowly and minimize the number of trips. It helps to stay in one floor for the next few days. No lifting except what you can lift by one hand until you are released from the post-operative care. 12. Driving is discouraged until you are well healed. It may be 3-4 weeks before you feel strong enough to drive. You should be able to turn and look through the rear window without pain and you should be able to push the brake pedal very hard without pain before you drive. No fast rules, but SAFETY should be your primary concern. DO NOT drive if you are on sedating medications such as narcotics. 13. Call the clinic (during working hours) to make urgent appointment or go to the Emergency room, if any of the following occurs: i. Vaginal bleeding becomes heavy, more than a period. ii. Incision becomes red and sore, or drains pus. iii. Your temperature is over 100.4 or you have chill. iv. IV site becomes red and swollen (a little ``knot?? is usually OK) v. Persistent nausea and vomiting vi. Persistent constipation or diarrhea vii. Rash or allergic reaction to medications. Discharge Attestations MANIFEST/ORDER ORGANIZER PRINT ORDERS Time Spent in Discharge Care*: greater than 30 min Coding Level of Care Code Acute [employer] for Chg Fwd Diagnoses Intrauterine growth restriction affecting antepartum care of mother in third trimester O36.5930 Term delivered O80
[2021-03-25 16:24] VITALS: BP 108/60; PULSE 70; RESP 18; TEMP 36.4; O2SAT 100
== END 2021-03-25 16:15 | disposition home or self-care (01) | DRG 807 ==
PROVIDERS: Admitting Provider Obstetrics & Gynecology; PCP Family Medicine; Visit Provider Obstetrics & Gynecology
DX: O36.5930 Maternal care for other known or suspected poor fetal growth, third trimester, not applicable or unspecified (principal); Z37.0 Single live birth; Z3A.39 39 weeks gestation of pregnancy; O99.344 Other mental disorders complicating childbirth; F41.9 Anxiety disorder, unspecified; O70.1 Second degree perineal laceration during delivery
CPT/HCPCS: 36415; 51702; 59409; 84315; 85025; 85027; 87635; 96374; J2795; J3010

== ENCOUNTER → 2022-11-19 09:11 | Outpatient (BNVA) | payer SELFPAY | PROVIDERS: PCP Family Medicine; Visit Provider Obstetrics & Gynecology | DX: Z32.00 Encounter for pregnancy test, result unknown (principal) | CPT/HCPCS: 81025; 84702 ==

== ENCOUNTER → 2022-11-21 15:10 | Outpatient (BNVA) | payer SELFPAY | PROVIDERS: PCP Family Medicine; Visit Provider Obstetrics & Gynecology | DX: Z34.90 Encounter for supervision of normal pregnancy, unspecified, unspecified trimester (principal) | CPT/HCPCS: 84702 ==

== ENCOUNTER → 2022-12-20 12:06 | Outpatient (BNVA) | payer SELFPAY | PROVIDERS: PCP Family Medicine; Visit Provider Nurse Practitioner Women's Health | DX: Z34.90 Encounter for supervision of normal pregnancy, unspecified, unspecified trimester (principal) | CPT/HCPCS: 81000 ==

== ENCOUNTER → 2023-01-10 10:45 | Outpatient (BNVA) | payer SELFPAY | PROVIDERS: PCP Family Medicine; Visit Provider Obstetrics & Gynecology | DX: Z34.80 Encounter for supervision of other normal pregnancy, unspecified trimester (principal) | CPT/HCPCS: 80307; 81000; 85025; 86592; 86762; 86803; 86850; 86900; 87086; 87340; 87806 ==

== ENCOUNTER → 2023-02-14 14:04 | Outpatient (BNVA) | payer SELFPAY | PROVIDERS: PCP Family Medicine; Visit Provider Nurse Practitioner Women's Health | DX: O99.340 Other mental disorders complicating pregnancy, unspecified trimester; F41.9 Anxiety disorder, unspecified; Z3A.16 16 weeks gestation of pregnancy | CPT/HCPCS: 81000 ==

== ENCOUNTER → 2023-03-15 09:22 | Outpatient (BNVA) | payer SELFPAY | PROVIDERS: PCP Family Medicine; Visit Provider Nurse Practitioner Women's Health | DX: Z34.82 Encounter for supervision of other normal pregnancy, second trimester (principal) | CPT/HCPCS: 76805 ==

== ENCOUNTER → 2023-03-18 13:57 | Outpatient (BNVA) | payer SELFPAY | PROVIDERS: PCP Family Medicine; Visit Provider Obstetrics & Gynecology | DX: Z34.80 Encounter for supervision of other normal pregnancy, unspecified trimester (principal) | CPT/HCPCS: 81000 ==

== ENCOUNTER → 2023-04-03 15:20 | Outpatient (BNVA) | payer SELFPAY | PROVIDERS: PCP Family Medicine; Visit Provider Obstetrics & Gynecology | DX: Z34.80 Encounter for supervision of other normal pregnancy, unspecified trimester (principal) | CPT/HCPCS: 76815 ==

== ENCOUNTER → 2023-04-11 10:51 | Outpatient (BNVA) | payer SELFPAY | PROVIDERS: PCP Family Medicine; Visit Provider Nurse Practitioner Women's Health | DX: Z34.80 Encounter for supervision of other normal pregnancy, unspecified trimester (principal) | CPT/HCPCS: 81000; 82950 ==

== ENCOUNTER → 2023-05-09 09:36 | Outpatient (BNVA) | payer SELFPAY | PROVIDERS: PCP Family Medicine; Visit Provider Obstetrics & Gynecology | DX: Z34.80 Encounter for supervision of other normal pregnancy, unspecified trimester (principal) | CPT/HCPCS: 81000; 85025 ==

== ENCOUNTER → 2023-06-03 08:43 | Outpatient (BNVA) | payer SELFPAY | PROVIDERS: PCP Family Medicine; Visit Provider Obstetrics & Gynecology | DX: Z34.80 Encounter for supervision of other normal pregnancy, unspecified trimester (principal) | CPT/HCPCS: 81000 ==

== ENCOUNTER → 2023-06-18 08:05 | Outpatient (BNVA) | payer SELFPAY | PROVIDERS: PCP Family Medicine; Visit Provider Nurse Practitioner Women's Health | DX: Z34.80 Encounter for supervision of other normal pregnancy, unspecified trimester (principal); O99.340 Other mental disorders complicating pregnancy, unspecified trimester; F41.9 Anxiety disorder, unspecified | CPT/HCPCS: 81000 ==

== ENCOUNTER → 2023-07-01 10:13 | Outpatient (BNVA) | payer SELFPAY | PROVIDERS: PCP Family Medicine; Visit Provider Obstetrics & Gynecology | DX: Z34.80 Encounter for supervision of other normal pregnancy, unspecified trimester (principal) | CPT/HCPCS: 81000; 87081 ==

== ENCOUNTER → 2023-07-15 07:46 | Outpatient (BNVA) | payer SELFPAY | PROVIDERS: PCP Family Medicine; Visit Provider Obstetrics & Gynecology | DX: Z34.83 Encounter for supervision of other normal pregnancy, third trimester (principal) | CPT/HCPCS: 81000 ==

== ENCOUNTER → 2023-07-22 07:55 | Outpatient (BNVA) | payer SELFPAY | PROVIDERS: PCP Family Medicine; Visit Provider Obstetrics & Gynecology | DX: Z34.80 Encounter for supervision of other normal pregnancy, unspecified trimester (principal) | CPT/HCPCS: 81000 ==

== ENCOUNTER 2023-07-23 13:00 | Inpatient (IN) | payer SELFPAY ==
[2023-07-23] VITALS (19 sets, daily range): BP systolic 113–136; BP diastolic 63–97; PULSE 79–113; RESP 16–18; TEMP 36.4–36.6; O2SAT 97–98; BMI 27.3
[2023-07-23 11:20] LABS: Basophils % 0.3 %; Eosinophils # 0.1 10^3/uL (0.0-0.8); Eosinophils % 0.5 %; Hematocrit 40.3 % (36-47); Lymphocytes % 10.7 %; Mean Corpuscular HGB Conc 35.5 g/dL (30-55); Mean Corpuscular Hemoglobin 31.1 pg (27-33); Mean Corpuscular Volume 87.6 fl (85-98); Mean Platelet Volume 9.5 fL (7.4-10.4); Monocytes # 0.5 10^3/uL (0.2-0.9); Monocytes % 5.6 %; Neutrophils # 7.95 10^3/uL (1.8-7.7); Nucleated Red Blood Cells % 0 %; Platelet Count 208 10^3/cmm (157-399); Red Cell Distribution Width 13.2 % (12.1-15.1)
--- NOTE | 2023-07-23 13:50 | P.HP_ITS ---
Providers/Chief Complaint 2 Admitting Physician: Dequan Fernandez MD Primary FOURDRINIER MACHINE TENDER: David Cabrera MD Primary Care Provider: Yasmany Adkins DO Chief Complaint: Contractions HPI FOURDRINIER MACHINE TENDER History of Present Illness Cathi Houser is a 27 year old female EDC July 28, 2023 At 39 w 3 d No complications Presented to L&D c/o painful uterine contractions No bleeding or fluid leakage + active movements h/o x one Present Details : 2 Para: 1 Labs Rubella: Immune RPR: Negative GBS: Negative Medications/Allergies Home Medications Medication Instructions Recorded Confirmed Last Taken Type fluoxetine 10 mg capsule (Prozac) 10 mg PO DAILY 11/11/19 07/23/23 06/24/20 History prenat.vits,nazanin,jyy-fscp-[id number] 1 tab PO DAILY 12/25/19 07/23/23 06/24/20 History Allergies Allergy/AdvReac Type Severity Reaction Status Date / Time melon Allergy Mild itching Verified 07/22/23 09:57 shellfish derived Allergy ALGY-Anaphy Verified 07/23/23 16:07 laxis PFSH FOURDRINIER MACHINE TENDER 2 PFSH: Medical History Anxiety Has been dealing with anxiety for a number of years however was started on medication in January 2018. Was on on BuSpar and diazepam managed by her primary care provider Dr. Adkins -Is currently on fluoxetine and has stopped BuSpar and diazepam as she is trying to get . She currently follows up with a therapist Dr. Phu Guerrero in [place]. No pertinent past medical history Patient denies history of PE/DVT/clotting disorders, asthma, lung, liver heart, thyroid, kidney disease, hypertension or diabetes. PCP: Dr. Adkins Surgical History H/O laparoscopy (~05/2020) performed in [place]-- stage 3 endometriosis S/P appendectomy Open appendectomy via right lower quadrant incision at the age of 12 Family History Grandfather Hypertension Paternal Brother Hypertension Family/Other Hypertension Paternal Uncle Father Heart disease Grandmother Uterine cancer Paternal, diagnosed at age 65 Denies family history of Cervical cancer Colon cancer DVT (deep venous thrombosis) Breast cancer Pulmonary embolism Other Female Reproductive History: Hx Age of Menarche: 12 History History History 2 2 Term 1 0 Miscarriages/Ectopic 0 Living Children 1 Care [place] Calculator 2 Estimated Delivery Date Method Current WG Current Estimate 07/28/23 LMP (Certain) 39w 3d Specific Issues/Plans * ANXIETY Vitals/I&O/Wt Last Vital Signs Temp 97.9 F 07/23/23 18:00 Pulse 79 07/23/23 18:00 Resp 16 07/23/23 18:00 BP 113/75 07/23/23 18:00 Pulse Ox 98 07/23/23 18:00 O2 Del Method Room Air 07/23/23 18:00 07/23/23 07/23/23 07/24/23 14:59 22:59 06:59 Intake Total 1450 / 1450 Balance 1450 / 1450 Weight last 48 hrs Weight 145 lb Physical Exam 2 Narrative: Weight 145 lbs; 5?1? VS normal General awake, alert, appropriate Lungs: clear Cor: RRR Abd: nontender Cervix: 6 cm / cephalic Ext: normal External monitor: regular UCs heart tracing good variability, + accelerations Data 07/23/23 11:00 Results Labs OB ([facility]): 2 Obstetrics US 04/03/23 Blood Type A Positive 07/23/23 Antibody Screen Negative 07/23/23 Hct 40.3 % (36-47) 07/23/23 Hgb 14.30 g/dL (11.27-16.99) 07/23/23 Rho(D) Type Rh positive 07/23/23 Plt Count 208 10^3/cmm (157-399) 07/23/23 Hep Bs Antigen Non-reactive (Nonreactive) 01/10/23 Hepatitis C Antibody Non-reactive (Nonreactive) 01/10/23 Rubella IgG Antibody 349.8 IU/mL (0.0-10.0) H 01/10/23 RPR Nonreactive (Nonreactive) 01/10/23 HIV 1&2 Ab & HIV 1 Ag Non-reactive (Non-Reactiv) 01/10/23 TSH 2.75 uIU/mL (0.27-4.20) 02/12/19 Glucose 1 Hr 50 gm 80 mg/dL (85-140) L 04/11/23 Gest Glucose Tolerance 92 mg/dL 12/06/20 Hemoglobin A1c 4.7 % (4.0-6.0) 02/12/19 Progesterone 12.02 02/12/19 Ser , Semi-Qnt 339.90 mIU/mL 11/21/22 HCG, Qual Positive (Negative) H 11/19/22 Urine Opiates Screen Negative ng/mL (Negative) 01/10/23 Ur Barbiturates Screen Negative ng/mL (Negative) 01/10/23 Ur Phencyclidine Scrn Negative ng/mL (Negative) 01/10/23 Ur Amphetamines Screen Negative ng/mL (Negative) 01/10/23 U Benzodiazepines Scrn Negative ng/mL (Negative) 01/10/23 Urine Cocaine Screen Negative ng/mL (Negative) 01/10/23 U Marijuana (THC) Screen Negative ng/mL (Negative) 01/10/23 Micro Urine Specimen 01/10/23 A&P Assessment and plan (1) Active labor at term: 39 w 3 d Active labor Admit Expectant management h/o x one Attestations 2 Medical Necessity Statement*: patient at 39 w 3 d, active labor Coding Level of Care Code Acute Code for Chg Fwd Diagnoses Active labor at term Time Spent (min) 30
[2023-07-23] MEDS: lactated ringers 1,000 ML 999 ML IV (14:18)
[2023-07-23] MEDS: oxytocin 30 UNIT/500 ML BAG 600 UNIT IV (14:50)
[2023-07-23] MEDS: lidocaine 2% INJ 20 mL INJECTION (15:03)
--- NOTE | 2023-07-23 17:05 | PM.DELIVERY ---
Delivery Note: Date of delivery: July 23, 2023 Pre-delivery diagnoses: 39 w 3 d active labor Post-delivery diagnoses: 39 w 3 d active labor vaginal delivery repair of third-degree perineal laceration Procedure: vaginal delivery repair of third-degree perineal laceration Op report anesthesia: None Delivering Physician: Dequan Fernandez MD Estimated blood loss (mL): 300 Findings: , vigorous male infant Cord gases and blood obtained Normal placenta and cord Third-degree perineal laceration repaired in layers EBL: 300 cc No complications Pre-Delivery Course: normal labor course Delivery: vaginal Post-Delivery Status: good History History History 2 Term 1 0 Miscarriages/Ectopic 0 Living Children 1 A&P Assessment and plan (1) Vaginal delivery: plan care Coding Level of Care Code Acute Code for Chg Fwd Diagnoses Vaginal delivery O80 Time Spent (min) 120
[2023-07-23] MEDS: benzocaine-menthol 78 gm Canister 1 SPRAY TOPICAL (17:26)
[2023-07-23] MEDS: lanolin oint 7 gm 1 APPLIC TOPICAL (17:26)
[2023-07-23] MEDS: docusate sodium 100 mg Capsule PO (20:17)
[2023-07-23] MEDS: ibuprofen 800 mg tablet PO (20:17)
[2023-07-24 01:00] VITALS: BP 112/68; PULSE 76; RESP 18; TEMP 36.6; O2SAT 100
[2023-07-24 04:05] LABS: Hematocrit 37.5 % (36-47); Mean Corpuscular HGB Conc 34.9 g/dL (30-55); Mean Corpuscular Hemoglobin 31.3 pg (27-33); Mean Corpuscular Volume 89.7 fl (85-98); Mean Platelet Volume 9.7 fL (7.4-10.4); Platelet Count 187 10^3/cmm (157-399); Red Blood Count 4.18 10^6/uL (3.85-5.65); Red Cell Distribution Width 13.2 % (12.1-15.1); White Blood Count 14.54 10^3/uL (3.29-11.43)
[2023-07-24 04:40] VITALS: BP 102/68; PULSE 80; RESP 18; TEMP 36.7; O2SAT 99
[2023-07-24] MEDS: acetaminophen 325 mg Tablet 650 MG PO (07:15)
[2023-07-24] MEDS: docusate sodium 100 mg Capsule PO (10:36)
[2023-07-24] MEDS: ibuprofen 800 mg tablet PO ×2 (10:36→16:56)
[2023-07-24] MEDS: PRENATAL VIT NO.130/IRON/FOLIC 1 EACH TABLET PO (10:36)
--- NOTE | 2023-07-24 12:05 | P.PN_ITS ---
ALMOND PAN FINISHER Subjective 2 Subjective: Interval history: no c/o no bleeding, pain eating, voiding, ambulating well caring for without any problems Labor: Station: 0 Amniotic Membrane Status: Ruptured Monitor Mode: Palpation Contraction Pattern: Regular Status: Category I Vitals/I&O/Wt Last Vital Signs Temp 98.4 F 07/24/23 17:30 Pulse 59 L 07/24/23 17:30 Resp 16 07/24/23 17:30 BP 129/84 07/24/23 17:30 Pulse Ox 98 07/24/23 17:30 O2 Del Method Room Air 07/24/23 04:40 Physical Exam 2 Narrative: afebrile, VS normal comfortable, awake, alert Abd: soft, nontender. fundus firm Ext: no edema; nontender Data 07/24/23 03:54 A&P Assessment and plan (1) Vaginal delivery: PPD #1 doing well discharge to home today instructions and precautions given call/return if fever, chills, headache, blurry vision, nausea, vomiting, abdominal pain; vaginal bleeding or discharge; shortness of breath, chest pain, leg pains or swelling; inability to void, perineal pain or swelling; feelings of depression or mood changes; thoughts of suicide or harming others; inability to care for baby. f/u in 6 weeks or PRN Attestations 2 Medical Necessity Statement*: patient s/p vaginal delivery, plan to discharge to home today Coding Level of Care Code Acute Code for Chg Fwd Diagnoses Vaginal delivery O80 Time Spent (min) 20
--- NOTE | 2023-07-24 12:10 | P.DS_ITS ---
Discharge Providers SERVICE ORDER TAKER Date of Admission: 07/23/23 13:00 Date of Discharge: 07/24/23 Attending Provider at Admission: Dequan Fernandez MD Attending Provider at Discharge: Dequan Fernandez MD Consults: none Primary SERVICE ORDER TAKER: David Cabrera MD Primary Care Provider: Yasmany Adkins DO Diagnoses at Discharge Discharge Diagnosis (1) Vaginal delivery: Details from hospital stay: 27 y.o. at 39 w 3 d no complications presented to L&D c/o painful uterine contractions cervix was 6 cm on admission heart tracing was reassuring throughout patient progressed to complete had spontaneous vaginal delivery of vigorous infant third-degree perineal laceration was repaired in layers patient had normal course and was discharged to home on the first day Status: Acute Reason for Visit Reason for Visit: Contractions Brief History: 27 y.o. at 39 w 3 d no complications presented to L&D c/o painful uterine contractions cervix was 6 cm on admission Hospital Course Hospital Course 27 y.o. at 39 w 3 d no complications presented to L&D c/o painful uterine contractions cervix was 6 cm on admission heart tracing was reassuring throughout patient progressed to complete had spontaneous vaginal delivery of vigorous third-degree perineal laceration was repaired in layers patient had normal course and was discharged to home on the first day Information Peripartum Data: Infant Delivery Method: Vaginal Laceration description: Perineal - 3rd Degree Episiotomy description: None complications: none Physical Exam Narrative: afebrile, VS normal comfortable, awake, alert Abd: soft, nontender. fundus firm Ext: no edema; nontender History History History 2 Term 1 0 Miscarriages/Ectopic 0 Living Children 1 Discharge Data Studies Completed and Pending Laboratory Results WBC 14.54 10^3/uL (3.29-11.43) H 07/24/23 03:54 RBC 4.18 10^6/uL (3.85-5.65) 07/24/23 03:54 Hgb 13.10 g/dL (11.27-16.99) 07/24/23 03:54 Hct 37.5 % (36-47) 07/24/23 03:54 MCV 89.7 fl (85-98) 07/24/23 03:54 MCH 31.3 pg (27-33) 07/24/23 03:54 MCHC 34.9 g/dL (30-55) 07/24/23 03:54 RDW 13.2 % (12.1-15.1) 07/24/23 03:54 Plt Count 187 10^3/cmm (157-399) 07/24/23 03:54 MPV 9.7 fL (7.4-10.4) 07/24/23 03:54 Neut % (Auto) 82.0 % 07/23/23 11:00 Lymph % (Auto) 10.7 % 07/23/23 11:00 [place] % (Auto) 5.6 % 07/23/23 11:00 Eos % (Auto) 0.5 % 07/23/23 11:00 Baso % (Auto) 0.3 % 07/23/23 11:00 Neut # (Auto) 7.95 10^3/uL (1.8-7.7) H 07/23/23 11:00 Lymph # (Auto) 1.0 10^3/uL (0.8-4.8) 07/23/23 11:00 [place] # (Auto) 0.5 10^3/uL (0.2-0.9) 07/23/23 11:00 Eos # (Auto) 0.1 10^3/uL (0.0-0.8) 07/23/23 11:00 Baso # (Auto) 0.0 10^3/uL (0.0-0.1) 07/23/23 11:00 Nucleated RBC % (auto) 0 % 07/23/23 11:00 Nucleated RBCs # 0.0 /100WBC 07/23/23 11:00 Blood Type A Positive 07/23/23 11:00 Rho(D) Type Rh positive 07/23/23 11:00 Antibody Screen Negative 07/23/23 11:00 Procedures Performed vaginal delivery repair of third-degree perineal laceration Vitals Last Vital Signs Temp 98.4 F 07/24/23 17:30 Pulse 59 L 07/24/23 17:30 Resp 16 07/24/23 17:30 BP 129/84 07/24/23 17:30 Pulse Ox 98 07/24/23 17:30 O2 Del Method Room Air 07/24/23 04:40 Results Labs OB ([facility]): Obstetrics US 04/03/23 Blood Type A Positive 07/23/23 Antibody Screen Negative 07/23/23 Hct 37.5 % (36-47) 07/24/23 Hgb 13.10 g/dL (11.27-16.99) 07/24/23 Rho(D) Type Rh positive 07/23/23 Plt Count 187 10^3/cmm (157-399) 07/24/23 Hep Bs Antigen Non-reactive (Nonreactive) 01/10/23 Hepatitis C Antibody Non-reactive (Nonreactive) 01/10/23 Rubella IgG Antibody 349.8 IU/mL (0.0-10.0) H 01/10/23 RPR Nonreactive (Nonreactive) 01/10/23 HIV 1&2 Ab & HIV 1 Ag Non-reactive (Non-Reactiv) 01/10/23 TSH 2.75 uIU/mL (0.27-4.20) 02/12/19 Glucose 1 Hr 50 gm 80 mg/dL (85-140) L 04/11/23 Gest Glucose Tolerance 92 mg/dL 12/06/20 Hemoglobin A1c 4.7 % (4.0-6.0) 02/12/19 Progesterone 12.02 02/12/19 Ser , Semi-Qnt 339.90 mIU/mL 11/21/22 HCG, Qual Positive (Negative) H 11/19/22 Urine Opiates Screen Negative ng/mL (Negative) 01/10/23 Ur Barbiturates Screen Negative ng/mL (Negative) 01/10/23 Ur Phencyclidine Scrn Negative ng/mL (Negative) 01/10/23 Ur Amphetamines Screen Negative ng/mL (Negative) 01/10/23 U Benzodiazepines Scrn Negative ng/mL (Negative) 01/10/23 Urine Cocaine Screen Negative ng/mL (Negative) 01/10/23 U Marijuana (THC) Screen Negative ng/mL (Negative) 01/10/23 Micro Urine Specimen 01/10/23 Discharge Plan Discharge Patient Disposition: Home Condition: Stable Prescriptions: Continued fluoxetine [Prozac] 10 mg capsule 10 mg PO DAILY prenat.vits,nazanin,[id number]-[id number] Tablet 1 tab PO DAILY Discharge Orders: Discharge Order (Routine); Ordered 07/24/23 Ordered By: Dequan Fernandez Referrals: David Cabrera MD [Physician] - 09/03/23 11:00 am Kelsey Pruitt [Physical Therapist] - 1 week (You should hear from [facility] Therapies Dept within one week of discharge. ) Discharge Diet: Usual diet Discharge Activity: Increase activity as tolerated Patient Instructions: Depression (DC), Perineal Care (DC), Preeclampsia and Eclampsia After Delivery (GEN), Perineal Tear with Delivery (DC), Breast Care for the Mother (DC), Hemorrhage (DC), OB Discharge Report, OB Food/Drug Interaction Guide, OB Home Care, OB Vaginal Deliveries - [facility], Abnormal Bleeding Discharge Attestations SERVICE ORDER TAKER Time Spent in Discharge Care*: less than 30 min Coding Level of Care Code Acute Code for Chg Fwd Diagnoses Vaginal delivery O80 Time Spent (min) 20
[2023-07-24 17:30] VITALS: BP 129/84; PULSE 59; RESP 16; TEMP 36.9; O2SAT 98
== END 2023-07-24 17:30 | disposition home or self-care (01) | DRG 768 ==
LOC: OPOB 14:11 → OBGYN 14:11
PROVIDERS: Admitting Provider Obstetrics & Gynecology; PCP Family Medicine; Visit Provider Obstetrics & Gynecology
DX: O99.344 Other mental disorders complicating childbirth (principal); Z37.0 Single live birth; O70.20 Third degree perineal laceration during delivery, unspecified; F41.9 Anxiety disorder, unspecified; Z3A.39 39 weeks gestation of pregnancy
CPT/HCPCS: 36415; 59025; 59409; 85025; 85027; 86850; 86900; 99211; J2590; J7120

== ENCOUNTER 2023-09-05 06:00 | Outpatient (RCR) | payer SELFPAY | END 2023-09-11 23:59 | disposition home or self-care (01) | LOC: SPT 06:00 | PROVIDERS: Visit Provider Obstetrics & Gynecology | DX: N39.3 Stress incontinence (female) (male) (principal) | CPT/HCPCS: 97161 ==

== ENCOUNTER 2023-09-12 06:00 | Outpatient (RCR) | payer SELFPAY | END 2023-10-12 23:59 | disposition home or self-care (01) | LOC: SPT 06:00 | PROVIDERS: Visit Provider Obstetrics & Gynecology | DX: N39.3 Stress incontinence (female) (male) (principal) | CPT/HCPCS: 97110 ==